=== PATIENT | male | born 1975 | race Caucasian/White ===

== ENCOUNTER 2016-10-26 18:08 | Emergency (ER) | payer OTHER ==
[2016-10-26 20:34] LABS: BUN/CREATININE RATIO 11 (0-10)
[2016-10-26 20:44] LABS: HEMOGLOBIN 12.6 gm/dl (14.0-17.5); RED BLOOD COUNT 4.4 M/UL (4.20-5.50)
== END 2016-10-26 23:55 | disposition home or self-care (01) ==
LOC: ER1 18:08
PROVIDERS: Specialist/Technologist Athletic Trainer
DX: K52.9 Noninfective gastroenteritis and colitis, unspecified (principal); S80.01XA Contusion of right knee, initial encounter; E87.6 Hypokalemia; F17.210 Nicotine dependence, cigarettes, uncomplicated; Z88.0 Allergy status to penicillin; Z88.2 Allergy status to sulfonamides; Z79.899 Other long term (current) drug therapy; W18.39XA Other fall on same level, initial encounter; X50.1XXA Overexertion from prolonged static or awkward postures, initial encounter; N20.0 Calculus of kidney
CPT/HCPCS: 36415; 73564; 80053; 81001; 82150; 83605; 83690; 85025; 87086; 96372; 99284; J2270

== ENCOUNTER 2016-11-13 23:39 | Emergency (ER) | payer OTHER ==
[2016-11-14 02:06] LABS: HEMOGLOBIN 12.9 gm/dl (14.0-17.5); RED BLOOD COUNT 4.52 M/UL (4.20-5.50); WHITE BLOOD COUNT 5.9 K/UL (4.5-11.0)
[2016-11-14 02:24] LABS: BUN/CREATININE RATIO 13 (0-10)
== END 2016-11-14 04:25 | disposition home or self-care (01) ==
LOC: ER1 23:39
PROVIDERS: Family Medicine
DX: S09.93XA Unspecified injury of face, initial encounter (principal); F17.210 Nicotine dependence, cigarettes, uncomplicated; Z88.0 Allergy status to penicillin; Z88.1 Allergy status to other antibiotic agents; W22.01XA Walked into wall, initial encounter
CPT/HCPCS: 36415; 70450; 71020; 80053; 82550; 82553; 83874; 84484; 85025; 93005; 99284

== ENCOUNTER 2016-12-03 20:04 | Emergency (ER) | payer OTHER ==
[2016-12-04 00:53] LABS: HEMOGLOBIN 12.7 gm/dl (14.0-17.5); RED BLOOD COUNT 4.48 M/UL (4.20-5.50); WHITE BLOOD COUNT 7.1 K/UL (4.5-11.0)
== END 2016-12-04 03:28 | disposition home or self-care (01) ==
LOC: ER1 20:04
PROVIDERS: Emergency Medicine
DX: R11.10 Vomiting, unspecified (principal); F17.200 Nicotine dependence, unspecified, uncomplicated; E86.0 Dehydration; E80.6 Other disorders of bilirubin metabolism; Z88.0 Allergy status to penicillin; Z79.899 Other long term (current) drug therapy
CPT/HCPCS: 36415; 80053; 81001; 83690; 84484; 85025; 96374; 99284; J2405; J7030

== ENCOUNTER 2016-12-19 18:34 | Emergency (ER) | payer OTHER | END 2016-12-19 20:10 | disposition home or self-care (01) | LOC: ER1 18:34 | DX: J02.9 Acute pharyngitis, unspecified (principal); F17.210 Nicotine dependence, cigarettes, uncomplicated | CPT/HCPCS: 99282 ==